=== PATIENT | female | born 1995 | race Caucasian/White ===

== ENCOUNTER 2023-12-13 02:00 | Emergency (ER) | payer MEDICAID ==
[~2023-12-13] VITALS: Ht 167.6 cm; Wt 122.0 kg
[2023-12-13 02:04] VITALS: TEMP 98.1
[2023-12-13] MEDS: KETOROLAC 30MG/ML VIAL IM NR (04:06)
[2023-12-13 04:19] VITALS: BP 119/69
[2023-12-13] MEDS ORDERED: NAPR275T96 MT (04:50)
[2023-12-13 05:19] VITALS: PULSE 79; RESP 14
== END 2023-12-13 05:26 | disposition home or self-care (01) ==
LOC: ER 02:00
DX: R10.9 Unspecified abdominal pain (principal); Z00.00 Encounter for general adult medical examination without abnormal findings
CPT/HCPCS: 96372; 99283; J1885; Z7610